=== PATIENT | male | born 1940 | race Caucasian/White ===

== ENCOUNTER 2018-02-23 09:01 | Day surgery (SDC) | payer OTHER ==
[2018-02-23] VITALS (8 sets, daily range): BP systolic 113–149; BP diastolic 63–73; PULSE 57–65; RESP 18–20; TEMP 97.5–98.2; O2SAT 94–99
[~2018-02-23] VITALS: Ht 177.8 cm; Wt 66.0 kg
[~2018-02-23 09:01] MED LIST: AMLO10 PO; ASPI81 PO; FISH1000 PO; LORT5TAB PO; OMEP20TA PO; SIMV40TA PO; TAMS0.4C67 PO; TEMA15CA PO; VITA500T49 PO
[2018-02-23] MEDS ORDERED: IODIXANOL 320 MG/ML 50 ML VIAL (for RAD SPEC) I-ARTERIAL ONE (09:02)
[2018-02-23] MEDS ORDERED: PRAV40TA2 PO (09:17)
[2018-02-23] MEDS ORDERED: FINA5TAB2 (09:17)
[2018-02-23] MEDS ORDERED: TAMS0.4C4 (09:17)
[2018-02-23] MEDS ORDERED: ASPI81CH6 CHEW (09:17)
[2018-02-23] MEDS ORDERED: AMLO10TA2 PO (09:17)
[2018-02-23] MEDS ORDERED: OMEP20TA93 PO (09:17)
[2018-02-23] MEDS ORDERED: ROPI0.5T PO (09:17)
[2018-02-23 09:45] LABS: AUTOMATED NEUTROPHIL # 4.7 TH/MM3 (1.8-7.7); BASOPHIL % 0.7 % (0.0-2.0); EOSINOPHIL # 0.1 TH/MM3 (0-0.4); EOSINOPHIL % 1.1 % (0.0-4.0); HEMATOCRIT 43.2 % (39.0-51.0); HEMOGLOBIN 14.7 GM/DL (13.0-17.0); LYMPH % 21.3 % (9.0-44.0); LYMPHOCYTE # 1.4 TH/MM3 (1.0-4.8); MEAN CELL VOLUME 91.7 FL (80.0-100.0); MEAN CORPUSCULAR HEMOGLOBIN 31.2 PG (27.0-34.0); MEAN PLATELET VOLUME 7.6 FL (7.0-11.0); MONO % 7.6 % (0.0-8.0); MONOCYTE # 0.5 TH/MM3 (0-0.9); NEUT % 69.3 % (16.0-70.0); PLATELET COUNT 137 TH/MM3 (150-450); RED CELL DISTRIBUTION WIDTH 13.8 % (11.6-17.2); WHITE BLOOD COUNT 6.8 TH/MM3 (4.0-11.0)
[2018-02-23 10:05] LABS: BICARBONATE 28.3 MEQ/L (21.0-32.0); CALCIUM 8.4 MG/DL (8.5-10.1); CREATININE 0.87 MG/DL (0.60-1.30)
[2018-02-23] MEDS ORDERED: SODIUM CHLOR 0.9% 1000 ML INJ 1,000 ML IV SCH ×2 (10:15→14:30)
[2018-02-23] MEDS ORDERED: SODIUM CHLORIDE 0.9% INJ 10 ML ONE (12:38)
[2018-02-23] MEDS ORDERED: VERAPAMIL HCL 5 MG/2 ML VIAL ONE (12:39)
[2018-02-23] MEDS ORDERED: HEPARIN SODIUM - IV 10,000 UNITS/10 ML VIAL ONE (12:56)
[2018-02-23] MEDS ORDERED: PROTAMINE SULFATE 50 MG/5 ML VIAL ONE (13:52)
[2018-02-23] MEDS ORDERED: ACETAMINOPHEN 325 MG TAB PO PRN (14:30)
[2018-02-23] MEDS ORDERED: oxyCODONE/ACETAMINOPHEN 5 MG/325 MG TAB PO PRN (14:30)
--- NOTE | 2018-02-23 15:48 | PD.CONS ---
HPI Service [facility] Hospitalists Consult Requested By Interventional radiology Reason for Consult Medical management Primary Care Physician Non-Staff Diagnoses: History of Present Illness 77 years old male with history of hypertension hyperlipidemia GERD and alcoholism and AAA repaired in the past admitted for a redo repair by interventional radiology, hospitalists were asked to see patient for medical management patient has a history of hypertension hyperlipidemia GERD alcoholism in the past with 30 years ago, currently he is doing well postprocedure no chest pain or short of breath no abdominal pain is on dorsal pulses appreciated. Past Family Social History Allergies: Coded Allergies: No Known Allergies (Unverified , 12/25/10) Past Medical History As in HPI Past Surgical History Inguinal hernia repair and AAA repair surgery Family History Review with the patient,not aware of significant medical history related to her problem runs in the family Social History Is a non-smoker quit alcohol drinking 30 years ago no illicit drug abuse Physical Exam Vital Signs Vital Signs Date Time Temp Pulse Resp B/P (MAP) Pulse Ox O2 Delivery O2 Flow Rate FiO2 02/23/18 15:04 98.1 65 18 149/69 (95) 97 02/23/18 15:02 97 Nasal Cannula 2.00 02/23/18 15:00 64 02/23/18 14:30 98.0 60 20 135/73 (93) 98 02/23/18 09:22 Room Air 02/23/18 09:15 97.8 60 20 138/71 (93) 98 Physical Exam GENERAL: This is a well-nourished, well-developed patient, in no apparent distress. SKIN: No rashes, warm and dry HEAD: Atraumatic. Normocephalic. EYES: Pupils equal round and reactive. Extraocular motions intact. No scleral icterus. ENT: Nose without bleeding, or drainage, Airway patent. NECK: Trachea midline. Supple CARDIOVASCULAR: Regular rate and , and rhythm S2 loud without murmurs, gallops, or rubs. RESPIRATORY: Fair air entry bilaterally. No wheezes, rales, or rhonchi. GASTROINTESTINAL: Abdomen soft, non-tender, nondistended. Positive bowel sounds MUSCULOSKELETAL: Extremities without clubbing, cyanosis, or edema. Pedal pulses appreciated NEUROLOGICAL: Awake and alert. Moves all extremity. Normal speech.no focal neurological deficit Laboratory Laboratory Tests Test 02/23/18 09:19 White Blood Count 6.8 Red Blood Count 4.70 Hemoglobin 14.7 Hematocrit 43.2 Mean Corpuscular Volume 91.7 Mean Corpuscular Hemoglobin 31.2 Mean Corpuscular Hemoglobin Concent 34.0 Red Cell Distribution Width 13.8 Platelet Count 137 Mean Platelet Volume 7.6 Neutrophils (%) (Auto) 69.3 Lymphocytes (%) (Auto) 21.3 Monocytes (%) (Auto) 7.6 Eosinophils (%) (Auto) 1.1 Basophils (%) (Auto) 0.7 Neutrophils # (Auto) 4.7 Lymphocytes # (Auto) 1.4 Monocytes # (Auto) 0.5 Eosinophils # (Auto) 0.1 Basophils # (Auto) 0.0 CBC Comment DIFF FINAL Differential Comment Prothrombin Time 10.0 Prothromb Time International Ratio 1.0 Activated Partial Thromboplast Time 26.7 Blood Urea Nitrogen 12 Creatinine 0.87 Random Glucose 104 Calcium Level 8.4 Sodium Level 138 Potassium Level 4.1 Chloride Level 104 Carbon Dioxide Level 28.3 Anion Gap 6 Estimat Glomerular Filtration Rate 85 Result Diagram: 02/23/18 0919 02/23/18 0919 Assessment and Plan Assessment and Plan 77 years old male admitted for AAA redo stenting repair with endovascular repair with modular stent graft device Hypertension controlled Hyperlipidemia GERD DVT prophylaxis Recommendation Continue good blood pressure control I will resume his home meds will add Vasotec as needed Continue statin and Protonix DVT prophylaxis Thank you for this consultation Eduardo Rincon MD Feb 23, 2018 15:47
[2018-02-23] MEDS ORDERED: ENALAPRILAT 1.25 MG/ML VIAL IV PUSH PRN (16:00)
--- NOTE | 2018-02-23 20:46 | EKG ---
Date Performed: 02/23/2018 Time Performed: 10:01:10 PTAGE: 77 years EKG: Sinus rhythm WITH SINUS ARRHYTHMIA NONSPECIFIC INTRAVENTRICULAR CONDUCTION DELAY ABNORMAL ECG PREVIOUS TRACING : 12/24/2010 12.03 Since the previous tracing, no significant change noted DOCTOR: Luisito Maxwell Interpretating Date/Time 02/23/2018 20:46:43
[2018-02-23] MEDS ORDERED: TAMSULOSIN HCL 0.4 MG CAP PO SCH (21:00)
[2018-02-23] MEDS ORDERED: TRAZ100T10 PO (21:34)
[2018-02-24 03:00] VITALS: PULSE 52
[2018-02-24 03:30] VITALS: BP 117/60; PULSE 58; RESP 18; O2SAT 99
[2018-02-24 07:22] VITALS: PULSE 52
[2018-02-24 07:24] VITALS: BP 114/55; PULSE 52; RESP 19; TEMP 97.8; O2SAT 99
[2018-02-24] MEDS ORDERED: FINASTERIDE 5 MG TAB PO SCH (09:00)
[2018-02-24] MEDS ORDERED: PANTOPRAZOLE SOD 20 MG DELAYED RELEASE TAB PO SCH (09:00)
[2018-02-24] MEDS ORDERED: PRAVASTATIN SOD 40 MG TAB PO SCH (09:00)
[2018-02-24] MEDS ORDERED: ASPIRIN 81 MG CHEW TAB CHEW SCH (09:00)
[2018-02-24 11:01] VITALS: BP 102/52; PULSE 62; RESP 19; TEMP 97.8; O2SAT 99
[2018-02-24 11:02] VITALS: PULSE 62
--- NOTE | 2018-02-24 12:16 | HHI.PR ---
Subjective Remarks 77 years old male with history of hypertension hyperlipidemia GERD and alcoholism and AAA repaired in the past admitted for a redo repair by interventional radiology, hospitalists were asked to see patient for medical management patient has a history of hypertension hyperlipidemia GERD alcoholism in the past with 30 years ago, currently he is doing well postprocedure no chest pain or short of breath no abdominal pain is on dorsal pulses appreciated. 4-12 NO NEW COMPLAINTS NO SOB, NO CHEST PAIN WANTS TO GO HOME DC TO HOME TODAY NO TUB BATHS OR SWIMMING DW RN AND PT AND FAMILY Wants to discharged home we will discharge to home Objective Vitals Vital Signs Date Time Temp Pulse Resp B/P (MAP) Pulse Ox O2 Delivery O2 Flow Rate FiO2 02/24/18 11:02 62 02/24/18 11:02 99 Room Air 02/24/18 11:01 97.8 62 19 102/52 (69) 99 02/24/18 07:24 97.8 52 19 114/55 (74) 99 02/24/18 07:22 52 02/24/18 07:22 99 Room Air 02/24/18 03:30 99 Room Air 02/24/18 03:30 58 18 117/60 (79) 99 02/24/18 03:00 52 02/23/18 23:15 99 Room Air 02/23/18 23:15 98.2 64 18 113/63 (80) 99 02/23/18 23:00 57 02/23/18 20:00 94 Nasal Cannula 2.00 02/23/18 20:00 97.5 64 18 119/64 (82) 94 02/23/18 19:00 65 02/23/18 15:04 98.1 65 18 149/69 (95) 97 02/23/18 15:02 97 Nasal Cannula 2.00 02/23/18 15:00 64 02/23/18 14:30 98.0 60 20 135/73 (93) 98 I/O 02/23/18 02/23/18 02/23/18 02/24/18 02/24/18 02/24/18 07:00 15:00 23:00 07:00 15:00 23:00 Intake Total 1700 ml 720 ml Output Total 1150 ml 850 ml Balance 550 ml -130 ml Intake Oral 700 ml 720 ml IV Total 1000 ml Output Urine Total 1150 ml 850 ml # Bowel Movements 0 Result Diagram: 02/23/18 0919 02/23/18 0919 Other Results Laboratory Tests Test 02/23/18 09:19 White Blood Count 6.8 TH/MM3 Red Blood Count 4.70 MIL/MM3 Hemoglobin 14.7 GM/DL Hematocrit 43.2 % Mean Corpuscular Volume 91.7 FL Mean Corpuscular Hemoglobin 31.2 PG Mean Corpuscular Hemoglobin Concent 34.0 % Red Cell Distribution Width 13.8 % Platelet Count 137 TH/MM3 Mean Platelet Volume 7.6 FL Neutrophils (%) (Auto) 69.3 % Lymphocytes (%) (Auto) 21.3 % Monocytes (%) (Auto) 7.6 % Eosinophils (%) (Auto) 1.1 % Basophils (%) (Auto) 0.7 % Neutrophils # (Auto) 4.7 TH/MM3 Lymphocytes # (Auto) 1.4 TH/MM3 Monocytes # (Auto) 0.5 TH/MM3 Eosinophils # (Auto) 0.1 TH/MM3 Basophils # (Auto) 0.0 TH/MM3 CBC Comment DIFF FINAL Differential Comment Prothrombin Time 10.0 SEC Prothromb Time International Ratio 1.0 RATIO Activated Partial Thromboplast Time 26.7 SEC Blood Urea Nitrogen 12 MG/DL Creatinine 0.87 MG/DL Random Glucose 104 MG/DL Calcium Level 8.4 MG/DL Sodium Level 138 MEQ/L Potassium Level 4.1 MEQ/L Chloride Level 104 MEQ/L Carbon Dioxide Level 28.3 MEQ/L Anion Gap 6 MEQ/L Estimat Glomerular Filtration Rate 85 ML/MIN Objective Remarks GENERAL: Awake alert and oriented 3 talkative and cooperative wants to go home SKIN: Warm and dry. HEAD: Atraumatic. Normocephalic. EYES: Pupils equal and round. No scleral icterus. No injection or drainage. Extraocular muscles intact ENT: No nasal bleeding or discharge. Mucous membranes pink and moist. Tongue is midline supple NECK: Trachea midline. No JVD. Supple CARDIOVASCULAR: Regular rate and rhythm. S1-S2 no S3 or S4 RESPIRATORY: No accessory muscle use. Clear to auscultation. Breath sounds equal bilaterally. GASTROINTESTINAL: Abdomen soft, non-tender, nondistended. Hepatic and splenic margins not palpable. Bilateral groins appear stable MUSCULOSKELETAL: Extremities without clubbing, cyanosis, or edema. No obvious deformities. NEUROLOGICAL: Awake and alert. No obvious cranial nerve deficits. Motor grossly within normal limits. Five out of 5 muscle strength in the arms and legs. Normal speech. PSYCHIATRIC: Appropriate mood and affect; insight and judgment normal. Procedures Status post endovascular AAA repair by interventional radiology Medications and IVs Current Medications Sodium Chloride 1,000 ml @ 100 mls/hr Q10H IV ; Start 02/23/18 at 10:15; Stop 02/23/18 at 20:14; Status DC Sodium Chloride 10 ml @ As Directed STK-MED ONCE .ROUTE ; Start 02/23/18 at 12: 38; Stop 02/23/18 at 12:39; Status DC Verapamil HCl (Isoptin Inj) 5 mg STK-MED ONCE .ROUTE ; Start 02/23/18 at 12:39; Stop 02/23/18 at 12:40; Status DC Heparin Sodium (Porcine) (Heparin Inj) 10,000 units STK-MED ONCE .ROUTE ; Start 02/23/18 at 12:56; Stop 02/23/18 at 12:57; Status DC Protamine Sulfate (Protamine Sulfate Inj) 50 mg STK-MED ONCE .ROUTE ; Start 10/02 at 13:52; Stop 02/23/18 at 13:53; Status DC Sodium Chloride 1,000 ml @ 100 mls/hr Q10H IV ; Start 02/23/18 at 14:30; Stop 02/24/18 at 00:29; Status DC Acetaminophen (Tylenol) 650 mg Q4H PRN PO PAIN SCALE 1 TO 10; Start 02/23/18 at 14:30 Oxycodone/ Acetaminophen (Percocet 5-325 Mg) 1 tab Q4H PRN PO Pain not relieved by Tylenol Last administered on 02/23/18at 21:31; Start 02/23/18 at 14: 30 Fentanyl Citrate (fentaNYL INJ) 100 mcg STK-MED ONCE .ROUTE ; Start 02/23/18 at 14:41; Stop 02/23/18 at 14:42; Status DC Amlodipine Besylate (Norvasc) 10 mg DAILY PO Last administered on 02/24/18at 08: 46; Start 02/24/18 at 09:00 Aspirin (Aspirin Chew) 81 mg DAILY CHEW Last administered on 02/24/18at 08:46; Start 02/24/18 at 09:00 Finasteride (Proscar) 5 mg DAILY PO Last administered on 02/24/18 08:46; Start 02/24/18 at 09:00 Pravastatin Sodium (Pravachol) 40 mg DAILY PO Last administered on 02/24/18 08 :46; Start 02/24/18 at 09:00 Ropinirole HCl (Requip) 0.5 mg HS PO Last administered on 02/23/18 21:31; Start 02/23/18 at 21:00 Tamsulosin HCl (Flomax) 0.4 mg HS PO Last administered on 02/23/18 21:31; Start 02/23/18 at 21:00 Pantoprazole Sodium (Protonix) 20 mg DAILY PO Last administered on 02/24/18 08 :46; Start 02/24/18 at 09:00 Enalaprilat (Vasotec Inj) 1.25 mg Q6H PRN IV PUSH bp>160/90; Start 02/23/18 at 16:00 Iodixanol (VISIPAQUE 320 INJ (Rad Spec)) 140 ml STK-MED ONCE I-ARTERIAL Last administered on 02/23/18at 13:30; Start 02/23/18 at 09:02; Stop 02/23/18 at 19:02 ; Status DC A/P Assessment and Plan 77 years old male admitted for AAA redo stenting repair with endovascular repair with modular stent graft device Hypertension controlled Hyperlipidemia GERD DVT prophylaxis Recommendation Continue good blood pressure control I will resume his home meds will add Vasotec as needed Continue statin and Protonix Can discharge to home today Discharge Planning We will discharge to home Erik Naranjo DO Feb 24, 2018 12:16
[2018-02-24] MEDS ORDERED: OXYC1TAB63 PO (12:18)
--- NOTE | 2018-02-24 12:21 | HHI.DS ---
Discharge Summary Admission Date 02/24/12 Discharge Date: Feb 24, 2018 Admitting Diagnosis AAA REPAIR (1) AAA (abdominal aortic aneurysm) without rupture ICD Code: I71.4 - Abdominal aortic aneurysm, without rupture Diagnosis: Principal (2) S/P AAA repair using bifurcation graft ICD Code: Z95.828 - Presence of other vascular implants and grafts; Z86.79 - Personal history of other diseases of the circulatory system Diagnosis: Principal (3) Hypertension ICD Code: I10 - Essential (primary) hypertension Diagnosis: Principal (4) BPH (benign prostatic hyperplasia) ICD Code: N40.0 - Benign prostatic hyperplasia without lower urinary tract symptoms Diagnosis: Secondary (5) Hyperlipidemia ICD Code: E78.5 - Hyperlipidemia, unspecified (6) GERD (gastroesophageal reflux disease) ICD Code: K21.9 - Gastro-esophageal reflux disease without esophagitis Diagnosis: Secondary Procedures Status post endovascular AAA repair by interventional radiology Brief History - From Admission 77 years old male with history of hypertension hyperlipidemia GERD and alcoholism and AAA repaired in the past admitted for a redo repair by interventional radiology, hospitalists were asked to see patient for medical management patient has a history of hypertension hyperlipidemia GERD alcoholism in the past with 30 years ago, currently he is doing well postprocedure no chest pain or short of breath no abdominal pain is on dorsal pulses appreciated. CBC/BMP: 02/23/18 0919 02/23/18 0919 Significant Findings Laboratory Tests Test 02/23/18 09:19 Platelet Count 137 TH/MM3 (150-450) Calcium Level 8.4 MG/DL (8.5-10.1) Estimat Glomerular Filtration Rate 85 ML/MIN (>89) PE at Discharge GENERAL: Awake alert and oriented 3 talkative and cooperative wants to go home SKIN: Warm and dry. HEAD: Atraumatic. Normocephalic. EYES: Pupils equal and round. No scleral icterus. No injection or drainage. Extraocular muscles intact ENT: No nasal bleeding or discharge. Mucous membranes pink and moist. Tongue is midline supple NECK: Trachea midline. No JVD. Supple CARDIOVASCULAR: Regular rate and rhythm. S1-S2 no S3 or S4 RESPIRATORY: No accessory muscle use. Clear to auscultation. Breath sounds equal bilaterally. GASTROINTESTINAL: Abdomen soft, non-tender, nondistended. Hepatic and splenic margins not palpable. Bilateral groins appear stable MUSCULOSKELETAL: Extremities without clubbing, cyanosis, or edema. No obvious deformities. NEUROLOGICAL: Awake and alert. No obvious cranial nerve deficits. Motor grossly within normal limits. Five out of 5 muscle strength in the arms and legs. Normal speech. PSYCHIATRIC: Appropriate mood and affect; insight and judgment normal. Hospital Course 77 years old male with history of hypertension hyperlipidemia GERD and alcoholism and AAA repaired in the past admitted for a redo repair by interventional radiology, hospitalists were asked to see patient for medical management patient has a history of hypertension hyperlipidemia GERD alcoholism in the past with 30 years ago, currently he is doing well postprocedure no chest pain or short of breath no abdominal pain is on dorsal pulses appreciated. 4-12 NO NEW COMPLAINTS NO SOB, NO CHEST PAIN WANTS TO GO HOME DC TO HOME TODAY NO TUB BATHS OR SWIMMING DW RN AND PT AND FAMILY Wants to discharged home we will discharge to home Pt Condition on Discharge: Good Discharge Disposition: Discharge Home Discharge Time: <= 30 minutes Discharge Instructions DIET: Follow Instructions for: Heart Healthy Diet Speech Therapy-Diet Recommends: Regular Activities you can perform: Shower Only-No Bath Follow up Referrals: PCP Follow-up - 2-3 Days New Medications: Oxycodone HCl/Acetaminophen (Oxycodone-Acetaminophen 5-325) 5 Mg-325 Mg Tablet 1 TAB PO Q4H PRN for Pain not relieved by Tylenol, #12 TAB Continued Medications: Amlodipine (Amlodipine) 10 Mg Tab 10 MG PO DAILY for Blood Pressure Management, #30 TAB 0 Refills Aspirin (Aspirin Low Dose) 81 Mg Chew 81 MG CHEW DAILY, TAB 0 Refills Finasteride (Finasteride) 5 Mg Tab 5 MG DAILY for Manage Prostate Problems, #30 TAB 0 Refills Do not crush. Omeprazole (Omeprazole) 20 Mg Tab 20 MG PO DAILY, #30 TAB 0 Refills Pravastatin (Pravastatin) 40 Mg Tab 40 MG PO DAILY for Cholesterol Management, #30 TAB 0 Refills Ropinirole (Ropinirole) 0.5 Mg Tab 0.5 MG PO HS, #30 TAB 0 Refills Tamsulosin (Tamsulosin) 0.4 Mg Cap 0.4 MG HS for Manage Prostate Problems, #30 CAP 0 Refills Trazodone (Trazodone) 100 Mg Tablet 100 MG PO HS for Control Depression, #30 TAB 0 Refills Erik Naranjo DO Feb 24, 2018 12:21
--- NOTE | 2018-02-24 14:58 | MP ---
cc: Sheng Martinez MD DATE OF OPERATION: 02/23/2018 DATE OF SURGERY: 02/23/2018 PREOPERATIVE DIAGNOSIS: Abdominal aortic aneurysm, status post repair type 1 endoleak proximal cuff. POSTOPERATIVE DIAGNOSIS: Abdominal aortic aneurysm, status post repair type 1 endoleak proximal cuff. OPERATIVE PROCEDURE: Endovascular 32 x 32 x 50 mm cuff placement and Aptus EndoAnchor insertion. VASCULAR SURGEON: Sheng Martinez MD INTERVENTIONAL RADIOLOGIST AND CO-SURGEON: Jagjit Wiley MD ANESTHESIA: General. ESTIMATED BLOOD LOSS: 100 mL. DESCRIPTION OF PROCEDURE: The patient was prepped and draped in usual fashion. Then, under ultrasound guidance, the microwire was inserted into the right femoral artery and the left femoral artery. Over the microwires, small dilators are placed. Through these, the glidewire easily inserted and then a left and the right 5-Icelandic sheath. The arteriogram is obtained and the site of the leak is at a proximal end of the graft. This one is marked, ascertaining the position of the renal arteries. Through the right groin, the Lunderquist wire is placed through the exchange catheter and then the body of the graft 32 x 32 x 50 mm cuff is inserted. This one is carefully deployed and then an Endurant balloon is used to tap it down. The next arteriogram is obtained, there is still a small leak. At this point, 6 Aptus EndoAnchors are deployed to anchor down this new cuff to the vessel. The completion arteriogram shows no leak. Instruments are withdrawn and the arteriotomies closed with Perclose device on the left and Angio-Seal on the right. By the end of procedure, the patient has excellent pulses, is taken out of the endovascular suite in stable condition. MD CARMEN Manriquez/ZHANG , 02:02 PM , 02:57 PM
--- NOTE | 2018-02-25 00:16 | RADRPT ---
EXAM DATE/TIME: 02/23/2018 11:31 [facility] COMPARISON: No previous studies available for comparison. INDICATIONS : Patient presents with type I proximal endoleak post remote previous endovascular aortic aneurysm repa ir with symptomatic expanding aneurysm sac in need of evaluation and treatment. MEDICAL HISTORY : GERD HTN Hypercholesterolemia SURGICAL HISTORY : Endograft repair Hernia repair ENCOUNTER: Subsequent ACUITY: >1 year PAIN SCORE: 0/10 LOCATION: N/A FLUORO TIME: 29.9 minutes IMAGE SERIES: 6 ACCESS SITE: Right Femoral artery CONTRAST: 140 cc Visipaque (iodixanol) MEDICATION(S): 1.) 2 g cefazolin (Ancef) IV 2.) 5,000 units Heparin IV 3.) 25 mg Protamine IV DEVICE(S): 1.) Right Aorta 32mm x 32mm x 49mm aortic brass finisher stent graft 2.) Right Aorta/ 8 Aptus Endoanchors Anesthesia and pain control was provided by the Anesthesia department. The below described procedures were performed as co-primary surgeon with Dr. Martinez. PROCEDURE : 1. Ultrasound-guided puncture of the bilateral common femoral artery access sites. 2. Angiography of the right common femoral artery access site prior to closure device. 3. nonselective aortic catheterization from bilateral femoral approach. 4. endovascular aortic aneurysm endograft repair with proximal cuff placement. 5. Aptus Endoanchor placement x8 The patient was placed supine on the angiography table. General endotracheal anesthesia was administe red by the department of anesthesia representatives. The bilateral groins were prepped in sterile fas hion. Full sterile technique was used, including cap, mask, sterile gloves and gown and a large steri le sheet. Hand hygiene and 2% chlorhexidine and/or betadine/alcohol prep was utilized per protocol fo r cutaneous antisepsis with appropriate dry time for site. The skin and subcutaneous tissues were inf iltrated with lidocaine solution. Blunt dissection was utilized to free up the tissues superficial to the access vessel. Ultrasound guidance was utilized using sterile gel and sterile probe cover. Under direct ultrasound guidance, micropuncture access was accomplished into the common femoral arteries b ilaterally allowing placement of a 4 Swedish vascular sheath. The ultrasound images depicting access g uidance were saved and stored to PACS for permanent record. A marking Omni flush catheter was introduced and positioned in the upper abdominal aorta. Digital sub traction abdominal aortography was performed. It was determined that proximal cuff extension of previ ous endovascular aortic aneurysm repair was feasible. At this point, Perclose sutures were deployed i nto the right common femoral access using the preclose technique. The sutures were set aside in the s terile field. A Lunderquist wire was introduced from the right and positioned into the thoracic aorta . Over this, a preselected 32 mm diameter 4.9 cm length Endurant II aortic brass finisher graft was introdu negin and positioned at the level of the renal arteries. An Omni Flush catheter from the left groin acc ess was positioned above the level of the renal arteries and used to perform flush aortography with m agnified subtraction in order to accurately position the graft. The endograft was carefully deployed so as to slightly cover the lower aspect of the renal ostia to achieve maximum proximal coverage. The endograft delivery system was removed and an 18 Swedish vascular sheath was replaced at the right genevieve in. The cuff was then dilated using a Reliant angioplasty balloon with 2 separate slow dilatations pe rformed. Interval aortography revealed a satisfactory appearance, however persistence of-type I endol eak. We therefore proceeded with placement of Aptus endoanchors. A total of 8 anchors were introduced , including 2 anchors placed posteriorly at the exact location of suspected endoleak. Completion aort ography revealed an excellent angiographic appearance with wide patency of the endograft trunk and li mbs with no evidence of residual endoleak and good preservation of flow in the renal arteries. Right femoral sheath arteriography was then performed and the arteriotomy was closed with the provide d sutures without difficulty. The contralateral left groin sheath was removed and hemostasis achieved with direct pressure and application of hemostatic patch. The patient tolerated the procedure well and was taken to anesthesia recovery in good stable conditio n. CONCLUSION: Uncomplicated endovascular aortic aneurysm endograft rehabilitation with proximal extension cuff plac ement and deployment of multiple endovascular anchors as described in detail above. Jagjit Wiley MD on February 24, 2018 at 23:49 Board Certified Radiologist. This report was verified electronically.
== END 2018-02-24 12:40 | disposition home or self-care (01) ==
LOC: HROP 09:01 → HRIP 09:04 → HCVI 14:42 → HROP 02-24 12:40
PROVIDERS: ATTEND Hospitalist
DX: I71.4 Abdominal aortic aneurysm, without rupture (principal); I10 Essential (primary) hypertension; N40.0 Benign prostatic hyperplasia without lower urinary tract symptoms; K21.9 Gastro-esophageal reflux disease without esophagitis; E78.5 Hyperlipidemia, unspecified; E78.00 Pure hypercholesterolemia, unspecified; Z79.82 Long term (current) use of aspirin
CPT/HCPCS: 01926; 34710; 34712; 80048; 85025; 85610; 85730; 93005; C1725; C1760; C1769; C1874; C1887; C1894; G0269; J1644; J2720; J3010; Q9967; 34713; 76937

== ENCOUNTER 2018-03-04 12:27 | Day surgery (SDC) | payer OTHER ==
[~2018-03-04 12:27] MED LIST changes: -AMLO10 PO; +AMLO10TA2 PO; -ASPI81 PO; +ASPI81CH6 CHEW; +FINA5TAB2; -FISH1000 PO; -LORT5TAB PO; -OMEP20TA PO; +OMEP20TA93 PO; +OXYC1TAB63 PO; +PRAV40TA2 PO; +ROPI0.5T PO; -SIMV40TA PO; +TAMS0.4C4; -TAMS0.4C67 PO; -TEMA15CA PO; +TRAZ100T10 PO; -VITA500T49 PO
[2018-03-04 12:45] VITALS: BP 132/68; PULSE 77; RESP 18; TEMP 97.9; O2SAT 96
--- NOTE | 2018-03-04 14:17 | RADRPT ---
EXAM DATE/TIME: 03/04/2018 12:56 [facility] COMPARISON : INDICATIONS : FU Endo AAA OBJECTIVE: Temperature: 97.9 Heart Rate: 77 Blood Pressure: 132/68 Respiratory: 20 Oximetry: 96 PNEUMONIA VACCINE: YES HISTORY OF PRESENT ILLNESS: Patient status post endovascular aortic aneurysm repair revision for type I a endoleak with aneurysm sac expansion and abdominal and lower extremity pain. Patient reports interval resolution of most of his lower extremity and abdominal symptomatology. He h as mild residual soreness in the groin regions bilaterally. PAST MEDICAL HISTORY : 1. Hiatal hernia. 2. Hypercholesterolemia. 3. Arthritis. 4. Aneurysm, abdominal. ALLERGIES: 1. NKDA MEDICATIONS: 1. Amlodipine 10 mg 2. [id number] mg 3. Finasteride 5 mg 4. Omeprazole 20 mg 5. Oxycodone 5/325 mg 6. Prevastatin 40 mg 7. Ropinirole 0.5 mg 8. Tamsulosin 0.4 mg 9. Trazodone 100 mg EXAM: Abdomen is soft, nontender. Groin pulses are 2+ bilaterally. No swelling, bruising or erythema. ASSESSMENT: Patient is doing well status post endovascular aortic aneurysm revision. PLAN: Follow up CTA next week Jagjit Wiley MD on March 04, 2018 at 14:05 Board Certified Radiologist. This report was verified electronically.
== END 2018-03-04 13:40 | disposition home or self-care (01) ==
LOC: HROP 12:27 → HRIP 12:32 → HROP 13:40
PROVIDERS: ATTEND Radiology Body Imaging
DX: Z09 Encounter for follow-up examination after completed treatment for conditions other than malignant neoplasm (principal)